=== PATIENT | female | born 1995 ===

== ENCOUNTER 2016-07-22 15:34 | Emergency (ER) | payer MEDICAID ==
[2016-07-22 16:00] VITALS: BP 107/85; PULSE 90; RESP 20; TEMP 98.1; O2SAT 100
[2016-07-22] MEDS ORDERED: Lactated Ringer's 1,000 ML in Lactated Ringer's 1,000 ML IV STA (16:19)
--- NOTE | 2016-07-22 16:37 | ED PDOC ---
HPI: Female Pain Time Seen by Provider: 07/22/16 16:03 Chief Complaint (Nursing): Female Genitourinary Chief Complaint (Provider): Abdominal Pain/Vaginal Bleeding History Per: Patient History/Exam Limitations: no limitations Onset/Duration Of Symptoms: Days (pain x2 weeks, bleeding x1 week) Current Symptoms Are (Timing): Still Present Associated Symptoms: Fever (subjective, not measured), Nausea, Vomiting, Urinary Symptoms (pain while urinating) Additional Complaint(s): 16:03 Antonia Dominguez is a 21 year old female that is currently five weeks during her first that presents to the ED with a chief complaint of abdominal pain, that she has been experiencing for two weeks, and vaginal bleeding, that she has been experiencing for one week, along with associated nausea, vomiting, fever, dysuria, cough, and rhinorrhea. Patient states that she has never experienced this type of pain before, and that for her bleeding she goes through 2 pads per day, and observes no clots in the blood. She also reports that she used to have ovarian cysts in the past, but had them removed laproscopically when she was 13 years old; she still has both of her ovaries. Her last menstrual cycle was on June 12, 2016, and her period comes regularly. PMD: Karen Branch MD Last Menstral Period: 06/12/16 Past Medical History Reviewed: Historical Data, Nursing Documentation, Vital Signs Vital Signs: Last Vital Signs Temp 98.1 F 07/22/16 15:59 Pulse 90 07/22/16 15:59 Resp 20 07/22/16 15:59 BP 107/85 07/22/16 15:59 Pulse Ox 100 07/22/16 15:59 - Medical History Other PMH: ovarian cysts - Surgical History Other surgeries: laproscopically removed ovarian cysts - Family History Family History: States: Unknown Family Hx - Social History Current smoker - smoking cessation education provided: No - Home Medications Home Medications: Ambulatory Orders Medication Instructions Recorded Multivit/Folic Acid/I 1 tab PO DAILY #100 tab 07/22/16 [ Plus] - Allergies Allergies/Adverse Reactions: Allergies Allergy/AdvReac Type Severity Reaction Status Date / Time No Known Allergies Allergy Verified 07/22/16 15:58 Review of Systems Constitutional: Positive for: Fever (subjective) ENT: Positive for: Nose Discharge (rhinorrhea) Respiratory: Positive for: Cough Gastrointestinal: Positive for: Nausea, Vomiting, Abdominal Pain Genitourinary Female: Positive for: Dysuria Physical Exam - Reviewed Nursing Documentation Reviewed: Yes Vital Signs Reviewed: Yes - Physical Exam Appears: Positive for: Non-toxic, No Acute Distress Head Exam: Positive for: ATRAUMATIC, NORMOCEPHALIC Skin: Positive for: Normal Color, Warm, Dry Eye Exam: Positive for: Normal appearance, EOMI, PERRL ENT: Positive for: Normal ENT Inspection Cardiovascular/Chest: Positive for: Regular Rate, Rhythm. Negative for: Murmur Respiratory: Positive for: Normal Breath Sounds. Negative for: Respiratory Distress Gastrointestinal/Abdominal: Positive for: Soft, Tenderness (suprapubic midline tenderness). Negative for: Distended Neurologic/Psych: Positive for: Alert, Oriented - Laboratory Results Result Diagrams: 07/22/16 17:00 07/22/16 17:00 - ECG O2 Sat by Pulse Oximetry: 100 (RA) Pulse Ox Interpretation: Normal Medical Decision Making Medical Decision Makin:03 Initial Impression: Abdominal Pain/Nausea/Vomiting Initial Plan: * Type and Screen * Beta HCG * CMP * CBC * Urine * Urine Dip * Genital Culture * Chlamydia/GC RNA * Lactated Ringer's 1000 mL at 1000 mL/hr * US Transvaginal * Reevaluation * Accession No. : [id number] Patient Name / ID : DERRICK LIVE / [id number] Exam Date : 07/22/2016 17:44:08 ( Approved ) Study Comment : Sex / Age : F / 21Y Creator : Nataliya Zambrano MD Dictator : Nataliya Zambrano MD Relief Manager : Doper : Nataliya Zambrano MD Approver2 : Report Date : 07/22/2016 19:02:03 My Comment : Indication: Vaginal bleeding, Comparison: None available Technique: Transvaginal pelvic ultrasound. Findings: The uterus measures approximately 6.4 x 3.8 x 4.8 cm. Anteverted. Cervix length measures approximately 4 cm. There is a single intrauterine fetus present. 3 mm yolk sac. The gestational sac measures 1.3 cm and is compatible with a gestational age of 5 weeks 3 days. The crown-rump length measures 0.2 cm, out of range for gestational age calculation. heart motion is not detected. 1.6 x 0.5 x 1.3 cm subchorionic hemorrhage. The right ovary measures 2.3 x 1.2 x 2.3 cm. The left ovary measures 3.4 x 1.8 x 2.1 cm and contains evidence of the probable hemorrhagic corpus luteal cyst measuring approximately 1.6 x 1.5 x 1.5 cm. Doppler waveform is demonstrated on the right ovary. Doppler waveform of the left ovary is not provided however color is demonstrated. Small pelvic free fluid. Impression: Live single intrauterine with estimated gestational age 5 weeks 3 days by gestational sac calculation. heart motion is not detected at this time, possibly due to early stage of gestation. Recommend continued close follow -up. 1.6 x 0.5 x 1.3 cm subchorionic hemorrhage. Advise an anomaly screen at 16-18 weeks gestational age 1.6 cm probable left ovarian hemorrhagic corpus luteal cyst. Doppler waveform is demonstrated for the right ovary. Doppler waveform of the left ovary is not provided however color is demonstrated. The patient is being called back from the ER for confirmation Doppler waveform of the left ovary in order to confirm blood flow. Small pelvic free fluid. Findings discussed with Dr. Covarrubias on 07/22/16 at 6:57 p.m.. Pt O+. Beta hcg and US c/w LMP DW pt findings and plan of care. Informed that any bleeding during is a threatened miscarriage. Follow up with [facility] urgently. Scribe Attestation: Documented by Esperanza Abidor, acting as a scribe for Roberta Covarrubias MD Provider Scribe Attestation: All medical record entries made by the Scribe were at my direction and personally dictated by me. I have reviewed the chart and agree that the record accurately reflects my personal performance of the history, physical exam, medical decision making, and the department course for this patient. I have also personally directed, reviewed, and agree with the discharge instructions and disposition. Disposition - Clinical Impression Clinical Impression: Threatened miscarriage - Disposition [facility] Disposition Time: 19:00 Condition: STABLE Additional Instructions: RETURN TO ER FOR FAINTING OR NEAR FAINTING, BLEEDING MORE THAN ONE PAD AN HOUR, OR SEVERE PAIN START VITAMINS IMMEDIATELY. TAKE ONLY TYLENOL FOR PAIN. Prescriptions: Multivit/Folic Acid/I [ Plus] 1 tab PO DAILY #100 tab Instructions: Threatened Miscarriage (ED), First Trimester Vaginal Bleed (ED)
[2016-07-22 17:11] LABS: BASO % 0.5 % (0.0-2.0); EOS # 0.5 K/uL (0.0-0.7); EOS % 5.9 % (0.0-4.0); LYMPH # 1.3 K/uL (1.0-4.3); LYMPH % 15.6 % (20.0-40.0); MEAN CELL VOLUME 81.5 fl (81.0-99.0); MEAN CORPUSCULAR HEMOGLOBIN 27.7 pg (27.0-31.0); MEAN PLATELET VOLUME 9.7 fl (7.2-11.7); MONO % 11.6 % (0.0-10.0); NEUT # 5.6 K/uL (1.8-7.0); NEUT % 66.4 % (50.0-75.0); RED CELL DISTRIBUTION WIDTH 13.1 % (11.5-14.5); WHITE BLOOD COUNT 8.5 K/uL (4.8-10.8)
[2016-07-22 17:32] LABS: ALB/GLOB RATIO 1.1 (1.0-2.1); ALKALINE PHOSPHATASE 68 U/L (38-126); ALT/SGPT 22 U/L (9-52); AST/SGOT 28 U/L (14-36); BILIRUBIN,TOTAL 0.2 mg/dl (0.2-1.3); BLOOD UREA NITROGEN 8 mg/dl (7-17); CALCIUM 8.9 mg/dL (8.4-10.2); CARBON DIOXIDE 22 mmol/L (22-30); CHLORIDE 103 mmol/L (98-107); GFR AFRICAN-AMERICAN > 60; GLUCOSE,RANDOM 79 mg/dL (65-105); POTASSIUM 3.8 MMOL/L (3.6-5.0); SODIUM 141 mmol/l (132-148); TOTAL PROTEIN 8.2 G/DL (6.3-8.2)
--- NOTE | 2016-07-22 19:03 | US ---
Indication: Vaginal bleeding, Comparison: None available Technique: Transvaginal pelvic ultrasound. Findings: The uterus measures approximately 6.4 x 3.8 x 4.8 cm. Anteverted. Cervix length measures approximately 4 cm. There is a single intrauterine fetus present. 3 mm yolk sac. The gestational sac measures 1.3 cm and is compatible with a gestational age of 5 weeks 3 days. The crown-rump length measures 0.2 cm, out of range for gestational age calculation. heart motion is not detected. 1.6 x 0.5 x 1.3 cm subchorionic hemorrhage. The right ovary measures 2.3 x 1.2 x 2.3 cm. The left ovary measures 3.4 x 1.8 x 2.1 cm and contains evidence of the probable hemorrhagic corpus luteal cyst measuring approximately 1.6 x 1.5 x 1.5 cm. Doppler waveform is demonstrated on the right ovary. Doppler waveform of the left ovary is not provided however color is demonstrated. Small pelvic free fluid. Impression: Live single intrauterine with estimated gestational age 5 weeks 3 days by gestational sac calculation. heart motion is not detected at this time, possibly due to early stage of gestation. Recommend continued close follow-up. 1.6 x 0.5 x 1.3 cm subchorionic hemorrhage. Advise an anomaly screen at 16-18 weeks gestational age 1.6 cm probable left ovarian hemorrhagic corpus luteal cyst. Doppler waveform is demonstrated for the right ovary. Doppler waveform of the left ovary is not provided however color is demonstrated. The patient is being called back from the ER for confirmation Doppler waveform of the left ovary in order to confirm blood flow. Small pelvic free fluid. Findings discussed with Dr. Covarrubias on 07/22/16 at 6:57 p.m..
== END 2016-07-22 19:59 | disposition home or self-care (01) ==
LOC: H.ER 15:34
DX: O20.9 Hemorrhage in early pregnancy, unspecified (principal); O20.0 Threatened abortion; Z3A.01 Less than 8 weeks gestation of pregnancy